=== PATIENT | male | born 1945 | race Caucasian/White ===

== ENCOUNTER 2024-12-26 03:28 | Inpatient (IN) | payer OTHER, MEDICAID ==
[~2024-12-26] VITALS: Ht 175.3 cm; Wt 72.5 kg
[~2024-12-26 03:28] MED LIST: ENAL1TAB42 PO; HYDR25TA5 PO; LANS30CA58 PO; METF750T54 PO; PEN400T PO; TAMS1CAP25 PO; TOPI50TA53 PO
--- NOTE | 2024-12-26 04:13 | ED.PDOC ---
History of Present Illness HPI Comments 79-year-old male who presents to the emergency department via EMS with confusion. Patient's states since yesterday morning patient has had difficulty with word finding, abnormal behaviors such as trying to flush a diaper down the toilet, not dressing like his normal self, putting shoes on the wrong feet. reports that for the past 2 years, worsens over the past 6 months patient has had personality change concerning for early signs of Alzheimer's. She states that patient is currently taking metformin and topiramate at home for weight loss. Otherwise no significant past medical history. The patient's son recently had viral illness, patient has had similar symptoms. The patient I have called 911 just prior to arrival after patient was looking for an object which was right in front of the him and appeared acutely more confused with a loss for words. Patient has not had any slurred speech, no focal weakness. Per EMS on their arrival they witnessed patient repeating himself multiple times, looking for his wallet, being told he did not needed and continued to look for it. They noticed patient's oxygen saturation dropped to 88% intermittently on room air. Otherwise patient's other vital signs are stable, normal blood sugar, negative stroke scale. The patient himself states he has no complaints other than chronic back pain, he reports he was working vigorously yesterday in his yard. The patient is alert and oriented x3. He knows the year the, where he was, current situation, the president. He is able to remember his 's phone number. Chief Complaint: Confusion Time Seen by MD: 04:13 Reviewed Notes: Medications, Allergies Allergies: Coded Allergies: Statins (Verified Allergy, Unknown, 12/26/24) Home Meds Reported Medications Levothyroxine Sodium (Levothyroxine Sodium) 112 Mcg Tab, 1 TAB PO DAILY 12/26/24 Information Source: Patient Mode of Arrival: EMS Severity: Moderate Timing: Hours Duration: Since onset Prehospital treatment: Facilitator Vital Signs Vital Signs Date Time Temp Pulse Resp B/P (MAP) Pulse Ox O2 Delivery O2 Flow Rate FiO2 12/26/24 06:30 74 16 113/61 (78) 99 12/26/24 05:26 Nasal Cannula* 2 28 12/26/24 05:07 98.3 98.3 Physical Exam General: Awake, alert and oriented. No acute distress. Skin: Skin in warm, dry and intact. Appropriate color for ethnicity. HEENT: The head is normocephalic and atraumatic. Conjunctivae are clear without exudates or hemorrhage. Sclera is non-icteric. EOM are intact. No signs of nystagmus. Eyelids are normal in appearance without swelling or lesions. Oral mucosa is pink and moist. Nasal cannula in place. Neck: The neck is supple with normal range of motion. No JVD. Cardiac: Heart rate and rhythm are normal. No murmurs, gallops, or rubs are auscultated. Respiratory: No signs of respiratory distress. Lung sounds are clear in all lobes bilaterally without rales, rhonchi, or wheezes. Abdominal: Abdomen is soft, non-tender without distention. Bowel sounds are present and normoactive in all four quadrants. Extremities: Upper and lower extremities are atraumatic in appearance without deformity or edema. Neurological: The patient is awake, alert and oriented to person, place, and time with normal speech. Speech is clear. There is no facial asymmetry. Normal coordination. Strength in upper and lower extremities intact. Psychiatric: Appropriate mood and affect. Good judgement and insight. Review of Systems: REVIEW OF SYSTEMS: No fever, no chills, or fatigue HEENT: No sore throat, no earache, no congestion, no neck pain. Cardiac: No chest pain. No palpitations. Lungs: No shortness of breath, no cough. GI: No nausea, no vomiting, no diarrhea, no constipation, no abdominal pain : No dysuria, frequency, or urgency. No hematuria. Musculoskeletal: No new joint pain , no joint swelling, no extremity edema. Skin: No rash, no itching. Neuro: No headache, no dizziness, no weakness Was a procedure done? Was a procedure done?: No EKG EKG : Pulse Rate (adult): 79 [place]: Normal Cardiac Rhythm: NSR Block: LBBB Hypertrophy: None ST: Normal Comments No STEMI Differential Dx Considerations may include: Differential diagnosis considered includes but not limited to stroke, head injury, seizure, metabolic disturbance, electrolyte imbalance, infection, substance intoxication, psychiatric cause, other systemic illness, other X-Ray, Labs, Meds, VS Vital Signs Date Time Temp Pulse Resp B/P (MAP) Pulse Ox O2 Delivery O2 Flow Rate FiO2 12/26/24 06:30 74 16 113/61 (78) 99 12/26/24 05:26 Nasal Cannula* 2 28 12/26/24 05:07 98.3 74 16 113/59 (77) 100 98.3 12/26/24 04:35 79 12/26/24 04:01 79 12/26/24 03:39 98.7 86 18 122/69 (86) 96 98.7 Lab Test 12/26/24 05:10 12/26/24 04:11 Range/Units Troponin I High Sensitivity 18 18 </=54 ng/L Thyroid Stimulating Hormone (TSH) 0.07 L 0.55-4.78 uIU/mL White Blood Count 25.0 H 4.4-10.8 10^3/uL Red Blood Count 4.27 L 4.5-5.90 10^6/uL Hemoglobin 12.6 L 13.5-17.5 g/dL Hematocrit 38.0 L 41.0-53.0 % Mean Corpuscular Volume 89.1 80.0-100.0 fL Mean Corpuscular Hemoglobin 29.6 28.0-32.0 pg Mean Corpuscular Hemoglobin Concent 33.2 32.0-36.0 g/dL Red Cell Distribution Width 12.8 11.8-14.3 % Platelet Count 281 140-450 10^3/uL Mean Platelet Volume 7.3 6.9-10.8 fL Neutrophils (%) (Auto) 37.0-80.0 % Lymphocytes (%) (Auto) 10.0-50.0 % Monocytes (%) (Auto) 0.0-12.0 % Basophils (%) (Auto) 0.0-2.0 % Neutrophils # (Auto) 1.6-8.6 10 ^3/uL Lymphocytes # (Auto) 0.4-5.4 10 ^3/uL Monocytes # (Auto) 0-1.3 10 ^3/uL Differential Total Cells Counted 100.0 100 Neutrophils % (Manual) 85 H 37.0-80.0 Band Neutrophils % (Manual) 3 Lymphocytes % (Manual) 5 L 10.0-50.0 Monocytes % (Manual) 6 0-12 Eosinophils % (Manual) 0 0-7 Basophils % (Manual) 0 0.0-2.0 Metamyelocytes % (manual) 0 Myelocytes % (Manual) 0 Promyelocytes % (Manual) 0 Blast Cells % (Manual) 0 Reactive Lymphocytes 1 Platelet Estimate Adequate Sodium Level 136 136-145 mmol/L Potassium Level 3.5 3.5-5.1 mmol/L Chloride Level 100 98-107 mmol/L Carbon Dioxide Level 27 20-31 mmol/L Anion Gap 9 5-15 Blood Urea Nitrogen 24 H 9-23 mg/dL Creatinine 1.28 0.700-1.30 mg/dL Glomerular Filtration Rate Calc 57 >90 mL/min BUN/Creatinine Ratio 18.8 10.0-20.0 Serum Glucose 144 H 74-106 mg/dL Hemoglobin A1c 5.6 <5.7 % A1C Lactic Acid Level 1.0 0.4-2.0 mmol/L Calcium Level 9.4 8.7-10.4 mg/dL Magnesium Level 1.9 1.6-2.6 mg/dL Total Bilirubin 0.6 0.2-1.0 mg/dL Aspartate Amino Transferase (AST) 11 L 13-40 U/L Alanine Aminotransferase (ALT) 12 7-40 U/L Alkaline Phosphatase 129 H 46-116 U/L Total Protein 7.0 5.7-8.2 g/dL Albumin 4.3 3.2-4.8 g/dL Free Thyroxine (T4) Calculated 1.35 0.89-1.76 ng/dL Free Triiodothyronine (T3) pg/mL 2.04 L 2.3-4.2 pg/mL Total Triiodothyronine (TT3) 0.70 0.60-1.81 ng/mL Plasma/Serum Blood Alcohol < 3.0 <10 mg/dL Current Medications Medications (Trade) Dose Ordered Sig/Sulema Route Start Time Stop Time Status Last Admin Ceftriaxone Sodium 50 ml @ 100 mls/hr ONCE ONCE IV 12/26/24 05:15 12/26/24 05:44 DC 12/26/24 05:40 Vancomycin HCl 200 ml @ 200 mls/hr ONCE ONCE IV 12/26/24 05:15 12/26/24 06:14 DC 12/26/24 06:15 Sodium Chloride 1,000 ml @ 1,000 mls/hr Q1H ONCE IV 12/26/24 06:15 12/26/24 07:14 DC 12/26/24 06:25 Time of 1ST Reevaluation: 04:43 Reevaluation 1ST: N/A Patient Education/Counseling: Need For Follow Up Family Education/Counseling: No Family Present Departure 1 Departure Time of Disposition: 05:05 Impression: Primary Impression: Confusion Additional Impression: Leukocytosis Disposition: 09 ADMITTED INPATIENT Condition: Stable Comments 79-year-old male with confusion and leukocytosis. Suspected infection, chest x-ray, CT head, urinalysis pending. Antibiotics initiated in the emergency department. Patient admitted to hospitalist service for further treatment, evaluation and monitoring. Extensive evaluation was performed in attempt to identify or rule out: (See differential diagnosis section) The following tests were ordered, and results were reviewed by me and discussed with patient: (See diagnostic results section) The following test were independently interpreted by me: EKG I reviewed and agreed with the following test results read by other providers: N/A I reviewed the following notes from the pt's past medical encounters: N/A Additional information was gathered from interviewing the following independent historians: EMS personnel, patient's Discussion of management or test interpretation with external physician/other qualified health doggy daycare activities director: N/A Decision regarding hospitalization or escalation of hospital level of care: Risk and benefits of admission for further treatment of patient's condition was considered. Due to patient's current clinical condition, high risk of decline and poor outcome if discharged and need for further inpatient management and monitoring, patient will be admitted to the hospital. Critical Care Note Critical Care Time?: No Stability Stability form required: No Heart Score Heart Score: Heart Score Response (Comments) Value History N/A 0 EKG N/A 0 Age N/A 0 Risk Factors N/A 0 Troponin N/A 0 Total 0 I personally scribed for ANI SANTACRUZ MD ([email or web address]) on 12/26/24 at 04:13. Electronically submitted by Cam Jeff ([email or web address]). I personally scribed for ANI SANTACRUZ MD ([email or web address]) on 12/26/24 at 04:35. Electronically submitted by Cam Jeff ([email or web address]). ANI SANTACRUZ MD Dec 26, 2024 04:13
[2024-12-26 04:43] LABS: Hemoglobin 12.6 g/dL (13.5-17.5); Mean Corpuscular Hemoglobin 29.6 pg (28.0-32.0); Mean Corpuscular Hgb Conc. 33.2 g/dL (32.0-36.0); Mean Corpuscular Volume 89.1 fL (80.0-100.0); Platelet Count (auto) 281 10^3/uL (140-450); Red Blood Cells 4.27 10^6/uL (4.5-5.90); Red Cell Distribution Width 12.8 % (11.8-14.3)
[2024-12-26 04:46] LABS: Basophils % (manual) 0 (0.0-2.0); Blast Cells 0; Eosinophils % (manual) 0 (0-7); Metamyelocytes % 0; Myelocytes % 0; Promyelocytes % 0
[2024-12-26 04:50] LABS: Alanine Aminotransferase 12 U/L (7-40); Albumin 4.3 g/dL (3.2-4.8); Anion Gap 9 (5-15); BUN/Creatinine Ratio 18.8 (10.0-20.0); Calcium 9.4 mg/dL (8.7-10.4); Carbon Dioxide 27 mmol/L (20-31); Chloride 100 mmol/L (98-107); Magnesium 1.9 mg/dL (1.6-2.6)
[2024-12-26 04:51] LABS: Bilirubin, Total 0.6 mg/dL (0.2-1.0)
[2024-12-26 04:56] LABS: Alkaline Phosphatase 129 U/L (46-116); Aspartate Aminotransferase 11 U/L (13-40); Blood Urea Nitrogen 24 mg/dL (9-23); Glucose 144 mg/dL (74-106); Potassium 3.5 mmol/L (3.5-5.1); Sodium 136 mmol/L (136-145)
--- NOTE | 2024-12-26 05:30 | ECG ---
[facility] Test Date: 2024-12-26 Test Time: 04:01:41 Pat Name: MARIA T MONTERO Department: ED Room: 0219T Gender: M Airplane Engineer: DARIUSZ : 1945 Requested By: ANI SANTACRUZ Order Number: [id number] Reading MD: Jeremiah Johnson Measurements Intervals [place] Rate: 79 P: 50 KS: 173 QRS: -71 QRSD: 141 T: -66 QT: 355 QTc: 407 Interpretive Statements Sinus rhythm Left bundle branch block Electronically Signed On 12-27-2024 21:05:43 PDT by Jeremiah Johnson Please click the below link to view image of tracing.
[2024-12-26 05:33] LABS: Blood Alcohol < 3.0 mg/dL (<10)
[2024-12-26] MEDS: cefTRIAXone 1GM/50ML D5W 50 ML IV ONE (05:40)
[2024-12-26] MEDS: VANCOMYCIN 1GM/200ML PM 200 ML IV ONE (06:15)
--- NOTE | 2024-12-26 06:17 | DVH ---
CHEST RADIOGRAPH Indication: AMS Technique: Single frontal view of the chest was obtained Comparison: None FINDINGS: Lines and Tubes: None Lungs: No focal consolidation. Pleura: No effusion. No pneumothorax. Cardiomediastinal contours: Unremarkable Bones: No acute osseous abnormality. IMPRESSION: 1. No acute cardiopulmonary disease.
--- NOTE | 2024-12-26 06:23 | DVH ---
EXAM: CT HEAD WITHOUT CONTRAST INDICATION: Altered mental status TECHNIQUE: CT of the head without intravenous contrast. Coronal and sagittal reformatted images are s ubmitted. Radiation Dose : 1. Head: CT Dose: CTDI volume is 53.9 mGy. Dose-length product is 1081.5 mGy*cm The dose indicators for CT are the volume Computed Tomography (CT) Dose Index (CTDIvol) and the Dose Length Product (DLP), and are measured in units of mGy and mGy-cm, respectively. These indicators are not patient dose, but values generated from the CT scanner acquisition factors. The report includes radiation exposure data for exposures received during this examination. All CT scans at this medical facility are performed using dose modulation techniques as appropriate to a performed exam including the following: Automated exposure control was utilized; adjustment of the MA and/or KV according to patient size; and use of iterative reconstruction technique. COMPARISON: None FINDINGS: There is no evidence of acute intracranial hemorrhage, extra-axial collection, mass effect, midline s hift, herniation or hydrocephalus. Generalized volume loss resulting in prominence of the extra-axial spaces The ventricles, sulci and cisterns are age appropriate. The alvarez-white differentiation is intact. The visualized paranasal sinuses and mastoid air cells are clear. No depressed calvarial fracture. The surrounding soft tissues are unremarkable. IMPRESSION: 1. No evidence of acute intracranial abnormality.
[2024-12-26] MEDS: SODIUM CHLORIDE 0.9% 1,000 ML IV ONE (06:25)
--- NOTE | 2024-12-26 06:52 | DVHHPRES ---
History of Present Illness Resident Creating Document: CORETTA GARCIA RESIDENT History of Present Illness 79-year-old male with past medical history( as provided by the patient) of chronic pain presented with complaints of fatigue that started last night after he did some weightlifting work. Denied any complaints of chest pain, shortness of breath, burning micturition, cough, nausea, vomiting, abdominal pain, dizziness, headache. As per ER physician note, presented to the emergency department via EMS with confusion. Patient's states since yesterday morning patient has had difficulty with word finding, abnormal behaviors such as trying to flush a diaper down the toilet, not dressing like his normal self, putting shoes on the wrong feet. reports that for the past 2 years, worsens over the past 6 months patient has had personality change concerning for early signs of Alzheimer's. She states that patient is currently taking metformin and topirama te at home for weight loss. Otherwise no significant past medical history. The patient's son recently had viral illness, patient has had similar symptoms. The patient I have called 911 just prior to arrival after patient was looking for an object which was right in front of the him and appeared acutely more confused with a loss for words. Patient has not had any slurred speech, no focal weakness. Per EMS on their arrival they witnessed patient repeating himself multiple times, looking for his wallet, being told he did not needed and continued to look for it. They noticed patient's oxygen saturation dropped to 88% intermittently on room air. Otherwise patient's other vital signs were stable, normal blood sugar, negative stroke scale. Past medical history Chronic pain Past surgical history No recent surgery Social history Denied smoking, drinks occasional alcohol, denied marijuana or any other drug intake Allergic history Statins Medication history Levothyroxine Hydrochlorothiazide Enalapril Tamsulosin Pentoxifylline Vilazodone Lamotrigine Metformin Topiramate Amlodipine Tizanidine Review of Systems Review of Systems As mentioned in the HPI Allergies: Coded Allergies: Statins (Verified Allergy, Unknown, 12/26/24) Exam Vital Signs Vital Signs Date Time Temp Pulse Resp B/P (MAP) Pulse Ox O2 Delivery O2 Flow Rate FiO2 12/26/24 05:26 Nasal Cannula* 2 28 12/26/24 05:07 98.3 74 16 113/59 (77) 100 98.3 Exam Examination General Appearance: Dry mouth, Alert, Oriented X3, Cooperative, No acute distress HEENT: EOMI Respiratory: Clear to auscultation, Normal air movement Cardiovascular: Regular rate, Normal S1, Normal S2 Abdominal: Normal bowel sounds Extremities: No cyanosis, No edema, Normal pulses, No tenderness/swelling Skin: No rashes, No breakdown Neuro: Normal gait, Normal speech, Strength at 5/5 X4 ext, Normal tone, Sensation intact, Cranial nerves 3-12 NL, Reflexes 2+ Psych/Mental Status: Mental status NL, Mood NL Point of care ultrasound on at bedside IVC collapse, size less than 1.3 cm Labs/Xrays Labs Test 12/26/24 05:10 12/26/24 04:11 Range/Units Troponin I High Sensitivity 18 </=54 ng/L White Blood Count 25.0 H 4.4-10.8 10^3/uL Red Blood Count 4.27 L 4.5-5.90 10^6/uL Hemoglobin 12.6 L 13.5-17.5 g/dL Hematocrit 38.0 L 41.0-53.0 % Mean Corpuscular Volume 89.1 80.0-100.0 fL Mean Corpuscular Hemoglobin 29.6 28.0-32.0 pg Mean Corpuscular Hemoglobin Concent 33.2 32.0-36.0 g/dL Red Cell Distribution Width 12.8 11.8-14.3 % Platelet Count 281 140-450 10^3/uL Mean Platelet Volume 7.3 6.9-10.8 fL Neutrophils (%) (Auto) 37.0-80.0 % Lymphocytes (%) (Auto) 10.0-50.0 % Monocytes (%) (Auto) 0.0-12.0 % Basophils (%) (Auto) 0.0-2.0 % Neutrophils # (Auto) 1.6-8.6 10 ^3/uL Lymphocytes # (Auto) 0.4-5.4 10 ^3/uL Monocytes # (Auto) 0-1.3 10 ^3/uL Sodium Level 136 136-145 mmol/L Potassium Level 3.5 3.5-5.1 mmol/L Chloride Level 100 98-107 mmol/L Carbon Dioxide Level 27 20-31 mmol/L Anion Gap 9 5-15 Blood Urea Nitrogen 24 H 9-23 mg/dL Creatinine 1.28 0.700-1.30 mg/dL Glomerular Filtration Rate Calc 57 >90 mL/min BUN/Creatinine Ratio 18.8 10.0-20.0 Serum Glucose 144 H 74-106 mg/dL Lactic Acid Level 1.0 0.4-2.0 mmol/L Calcium Level 9.4 8.7-10.4 mg/dL Magnesium Level 1.9 1.6-2.6 mg/dL Total Bilirubin 0.6 0.2-1.0 mg/dL Aspartate Amino Transferase (AST) 11 L 13-40 U/L Alanine Aminotransferase (ALT) 12 7-40 U/L Alkaline Phosphatase 129 H 46-116 U/L Total Protein 7.0 5.7-8.2 g/dL Albumin 4.3 3.2-4.8 g/dL Plasma/Serum Blood Alcohol < 3.0 <10 mg/dL Assessment/Plan Assessment/Plan Assessment and plan # metabolic encephalopathy likely due to possible sepsis -head CT IV fluids, IV antibiotics Workup for sepsis TSH, B12, folate, electrolytes -medication reconciliation #?Questionable sepsis, source not identified yet -IV fluids IV antibiotics Blood culture Lactic acid Urine culture Urine routine #Personality change, ?Dementia -consider outpatient neurology evaluation #hypothyroidism -continue home Meds ordered TSH Case discussion with Dr Mott Plan discussed with: Patient, Other Date of Service: Dec 26, 2024 Billing Provider: CESIA MOTT MD Common Visit Codes: [id number] INP/OBS CARE (HIGH) CORETTA GARCIA RESIDENT Dec 26, 2024 06:52 CESIA MOTT MD Dec 26, 2024 10:43
[2024-12-26 06:59] LABS: Band Neutrophils % (manual) 3; Lymphocytes % (manual) 5 (10.0-50.0); Monocytes % (manual) 6 (0-12); Platelet Estimate Adequate; Reactive Lymphocytes 1
[2024-12-26] MEDS ORDERED: VANCOMYCIN PER PHARMACY 0 MG IV SCH (07:45)
[2024-12-26 08:26] VITALS: PULSE 74; RESP 12; O2SAT 98
[2024-12-26 09:14] LABS: COVID19 ANTIGEN SOFIA FIA NEGATIVE (NEGATIVE); Rapid Influenza A Negative (Negative); Rapid Influenza B Negative (Negative)
[2024-12-26] MEDS: SODIUM CHLORIDE 0.9% 500 ML IV ONE (10:28)
--- NOTE | 2024-12-26 11:11 | DVHPNRES ---
Progress Note Date Seen: Dec 26, 2024 Resident Creating Document: ALFREDITO RAO RESIDENT Has the PT tested + for MRSA If YES, has PT been informed?: No Medical Necessity Reason Pt with a Central, PICC or Fol: No Medical Necessity Reason History of Presenting illness 79-year-old male with past medical history( as provided by the patient) of chronic pain presented with complaints of fatigue that started last night after he did some weightlifting work. Denied any complaints of chest pain, shortness of breath, burning micturition, cough, nausea, vomiting, abdominal pain, dizziness, headache. As per ER physician note, presented to the emergency department via EMS with confusion. Patient's states since yesterday morning patient has had difficulty with word finding, abnormal behaviors such as trying to flush a diaper down the toilet, not dressing like his normal self, putting shoes on the wrong feet. reports that for the past 2 years, worsens over the past 6 months patient has had personality change concerning for early signs of Alzheimer's. She states that patient is currently taking metformin and topiramate at home for weight loss. Otherwise no significant past medical history. The patient's son recently had viral illness, patient has had similar symptoms. The patient I have called 911 just prior to arrival after patient was looking for an object which was right in front of the him and appeared acutely more confused with a loss for words. Patient has not had any slurred speech, no focal weakness. Per EMS on their arrival they witnessed patient repeating himself multiple times, looking for his wallet, being told he did not needed and continued to look for it. They noticed patient's oxygen saturation dropped to 88% intermittently on room air. Otherwise patient's other vital signs were stable, normal blood sugar, negative stroke scale. Past medical history: Chronic pain Past surgical history:No recent surgery Social history:Denied smoking, drinks occasional alcohol, denied marijuana or any other drug intake Allergic history:Statins PN 12/26/2022 Patient seen and examined today. He mentioned that of recent, he has been very tired even after a good night sleep. 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 Patient denies any fever chills, nausea or vomiting. Per ED note, Patient's reported that She brought the patient to the ED via EMS with confusion. Patient's stated that a day prior to presenting to the ED, patient has had difficulty with word finding, displayed abnormal behaviors such as trying to flush a diaper down the toilet, not dressing like his normal self, putting shoes on the wrong feet. also reported that for the past 2 years, patient has had personality change concerning for early signs of Alzheimer's. Per , patient is currently taking metformin and topiramate.The patient's son recently had viral illness, patient has had similar symptoms. Thus, 911 was called. by the time EMS arrived, patient seemed more confused than before. In the ED, UA is positive for UTI, pending urine and blood culture. Leukocytosis. Chest x-ray: No acute cardiopulmonary disease. CT head showed No evidence of acute intracranial abnormality. Medication history: Levothyroxine, Hydrochlorothiazide,Enalapril,Tamsulosin, Pentoxifylline,Vilazodone, Lamotrigine, Metformin,Topiramate, Amlodipine,Tizanidine Subjective Review of Systems Constitutional: Denies fever no chills, extremely fatigued HEENT: Denies headache, ear pain, ear discharges, conjunctivitis, nasal discharge throat pain Cardiovascular: Denies chest pain, palpitation, orthopnea, PND, or pedal edema Respiratory: Denies shortness of breath, cough cough, sputum production, hemoptysis, GI: Denies abdominal pain, nausea, vomiting, diarrhea, hematemesis, hematochezia, : Denies frequency, urgency, hematuria, Endocrine: Denies unintentional weight gain or weight loss, feeling of hot flashes, [place]: Denies easy bruising, bleeding disorders, epistaxis Musculoskeletal: Denies joint pains, muscle aches Psych: No evidence of depression, claudine, suicidal ideation Objective vital signs Vital Sign Date Time Temp Pulse Resp B/P (MAP) Pulse Ox O2 Delivery O2 Flow Rate FiO2 12/26/24 09:01 97.5 74 20 102/66 (78) 100 97.5 12/26/24 08:26 Nasal Cannula* 2 28 Total Intake and Output 12/25/24 12/25/24 12/26/24 15:00 23:00 07:00 Intake Total 50 ml Balance 50 ml medications Current Medications Medications Dose Ordered Sig/Sulema Route Start Time Stop Time Status Last Admin Dose Admin Vancomycin HCl 0 ml @ 0 mls/hr UD IV 12/26/24 07:45 UNV Piperacillin Sod/ Tazobactam Sod 100 ml @ 25 mls/hr Q6HR IV 12/26/24 12:00 Examination General Appearance: Alert, Oriented X3, Cooperative, No acute distress; weak, HEENT: Atraumatic, PERRLA, EOMI, Mucous membrane moist/pink Respiratory: Clear to auscultation, Normal air movement Cardiovascular: Regular rate, Normal S1, Normal S2, No murmurs, no chest wall tenderness Abdominal: NO distention, no tenderness, bowel sounds present, no scars noted Extremities: No clubbing, No cyanosis, No edema, Normal pulses, No tenderness/swelling Skin: No rashes, No breakdown, No significant lesion Neuro: Normal gait, Normal speech, Strength at 5/5 X4 ext, Normal tone, Sensation intact, Cranial nerves 3-12 NL, Reflexes 2+ Psych/Mental Status: Mental status NL, Mood NL laboratory and microbiology Laboratory Tests 12/26/24 04:11 Test 12/26/24 04:11 Range/Units Serum Glucose 144 H 74-106 mg/dL Problem List/Assessment/Plan Problem List/Assessment/Plan Assessment metabolic encephalopathy likely due to possible sepsis --> head CT: No evidence of acute intracranial abnormality --> IV fluids, IV antibiotics Sepsis due to UTI --> Leukocytosis --> BP: 113/59 --> IV fluids --> IV antibiotics: Zosyn --> Blood culture:Pending --> Lactic acid: 1.0 --> Urine culture: Pending UTI -->IV fluids --> IV antibiotics: Zosyn --> Blood culture:Pending --> Lactic acid: 1.0 Urine culture: Pending Personality change, ?Dementia ---> consider outpatient neurology evaluation hypothyroidism --> continue levothyroxine Dehydration --> Fluids Goal of care discussed for 18 minutes: Full code Case and plan discussed + Dr. Sevilla Plan discussed with: Patient My Orders My Orders Orders - ALFREDITO RAO RESIDENT Procedure Category Date Status Time Free T3 LAB 12/26/24 Transmitted 11:07 T3 Total LAB 12/26/24 Transmitted 11:07 Free T4 (Free LAB 12/26/24 Transmitted Thyroxine) 11:07 Basic Metabolic Panel LAB 12/27/24 Verified 04:00 Complete Blood Count LAB 12/27/24 Verified 04:00 Date of Service: Dec 26, 2024 Billing Provider: ERNST SEVILLA MD Common Visit Codes: [id number] INP/OBS CARE(HIGH) ALFREDITO RAO RESIDENT Dec 26, 2024 11:11 ERNST SEVILLA MD Dec 27, 2024 22:22
[2024-12-26] MEDS: PIPERACILLIN-TAZOB 3.375GM 100 ML IV SCH (12:10)
[2024-12-26 12:26] LABS: Free T4 (Free Thyroxine) 1.35 ng/dL (0.89-1.76)
[2024-12-26 12:27] LABS: Free T3 2.04 pg/mL (2.3-4.2); T3 Total 0.7 ng/mL (0.60-1.81)
[2024-12-26 15:09] LABS: Urine Bacteria FEW /hpf (None Seen); Urine Blood 2+ /uL (Negative); Urine Clarity Turbid (Clear); Urine Color Light-Orange (Yellow); Urine Mucus FEW (None Seen); Urine Protein, UAD 1+ (Negative); Urine Specific Gravity 1.018 (1.001-1.035); Urine Squamous Epithelial Cell FEW /hpf (<5); Urine Urobilinogen Normal (Negative); Urine WBC 84 /HPF (0-3); Urine pH 5.5 (5.0-9.0)
[2024-12-26 15:20] LABS: Opiate Scree,Urine Neg (NEGATIVE)
[2024-12-26 15:23] LABS: Amphetamine Screen, Urine Neg (NEGATIVE); Barbiturate Scree,Urine Neg (NEGATIVE); Benzodiazephine Screen, Urine Neg (NEGATIVE); Cannabinoid Screen, Urine Neg (NEGATIVE); Cocaine Screen, Urine Neg (NEGATIVE); Phencyclidine Screen, Urine Neg (NEGATIVE)
[2024-12-26] MEDS ORDERED: LEVO112T4 PO (16:54)
[2024-12-26 17:00] VITALS: BP 136/73; PULSE 78; RESP 17; TEMP 97.8; O2SAT 96
[2024-12-26 17:55] VITALS: PULSE 78; RESP 17; O2SAT 96
[2024-12-26 20:00] VITALS: PULSE 95
[2024-12-26 21:00] VITALS: BP 129/70; PULSE 87; RESP 18; TEMP 101.8; O2SAT 97
[2024-12-27] VITALS (8 sets, daily range): BP systolic 116–142; BP diastolic 62–76; PULSE 64–79; RESP 17–19; TEMP 97.5–99; O2SAT 94–98
[2024-12-27] MEDS: PANTOPRAZOLE 40 MG/10 ML VIAL INJ IV ONE (00:31)
[2024-12-27] MEDS: LEVOTHYROXINE SODIUM 112 MCG TAB PO SCH (06:24)
[2024-12-27 07:20] LABS: Calcium 9.2 mg/dL (8.7-10.4); Chloride 104 mmol/L (98-107); Sodium 139 mmol/L (136-145)
[2024-12-27 07:21] LABS: Anion Gap 9 (5-15); Basophils # (auto) 0 10 ^3/uL (0-0.2); Basophils % (auto) 0.2 % (0.0-2.0); Carbon Dioxide 26 mmol/L (20-31); Eosinophils # (auto) 0.1 10 ^3/uL (0-0.8); Eosinophils % (auto) 0.7 % (0.0-7.0); Hematocrit 34.9 % (41.0-53.0); Hemoglobin 11.5 g/dL (13.5-17.5); Lymphocytes # (auto) 1.3 10 ^3/uL (0.4-5.4); Lymphocytes % (auto) 9.3 % (10.0-50.0); Mean Corpuscular Hemoglobin 29.6 pg (28.0-32.0); Mean Corpuscular Volume 89.9 fL (80.0-100.0); Monocytes # (auto) 1.8 10 ^3/uL (0-1.3); Monocytes % (auto) 13.1 % (0.0-12.0); Neutrophils # (auto) 10.5 10 ^3/uL (1.6-8.6); Neutrophils % (auto) 76.7 % (37.0-80.0); Nucleated Red Blood Cells % 0.1 %; Platelet Count (auto) 235 10^3/uL (140-450); Red Blood Cells 3.89 10^6/uL (4.5-5.90); Red Cell Distribution Width 12.7 % (11.8-14.3); White Blood Cell 13.6 10^3/uL (4.4-10.8)
[2024-12-27 07:26] LABS: BUN/Creatinine Ratio 15.7 (10.0-20.0); Blood Urea Nitrogen 16 mg/dL (9-23); Glucose 98 mg/dL (74-106)
[2024-12-27 07:30] LABS: Potassium 3.3 mmol/L (3.5-5.1)
[2024-12-27] MEDS: PANTOPRAZOLE 40 MG/10 ML VIAL INJ IV SCH (10:47)
[2024-12-27] MEDS: SODIUM CHL 0.9% 50 ML IV SCH (11:00)
[2024-12-27] MEDS: POTASSIUM CHL 20MEQ/50ML 50 ML IV SCH (11:33)
--- NOTE | 2024-12-27 17:25 | DVHPNRES ---
Progress Note Date Seen: Dec 27, 2024 Resident Creating Document: ALFREDITO RAO RESIDENT Has the PT tested + for MRSA If YES, has PT been informed?: No Medical Necessity Reason Pt with a Central, PICC or Fol: No Medical Necessity Reason History of Presenting illness 79-year-old male with past medical history( as provided by the patient) of chronic pain presented with complaints of fatigue that started last night after he did some weightlifting work. Denied any complaints of chest pain, shortness of breath, burning micturition, cough, nausea, vomiting, abdominal pain, dizziness, headache. As per ER physician note, presented to the emergency department via EMS with confusion. Patient's states since yesterday morning patient has had difficulty with word finding, abnormal behaviors such as trying to flush a diaper down the toilet, not dressing like his normal self, putting shoes on the wrong feet. reports that for the past 2 years, worsens over the past 6 months patient has had personality change concerning for early signs of Alzheimer's. She states that patient is currently taking metformin and topiramate at home for weight loss. Otherwise no significant past medical history. The patient's son recently had viral illness, patient has had similar symptoms. The patient I have called 911 just prior to arrival after patient was looking for an object which was right in front of the him and appeared acutely more confused with a loss for words. Patient has not had any slurred speech, no focal weakness. Per EMS on their arrival they witnessed patient repeating himself multiple times, looking for his wallet, being told he did not needed and continued to look for it. They noticed patient's oxygen saturation dropped to 88% intermittently on room air. Otherwise patient's other vital signs were stable, normal blood sugar, negative stroke scale. Past medical history: Chronic pain Past surgical history:No recent surgery Social history:Denied smoking, drinks occasional alcohol, denied marijuana or any other drug intake Allergic history:Statins Medication history: Levothyroxine, Hydrochlorothiazide,Enalapril,Tamsulosin, Pentoxifylline,Vilazodone, Lamotrigine, Metformin,Topiramate, Amlodipine,Tizanidine PN 12/26/2022 Patient seen and examined today. He mentioned that of recent, he has been very tired even after a good night sleep. 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 Patient denies any fever chills, nausea or vomiting. Per ED note, Patient's reported that She brought the patient to the ED via EMS with confusion. Patient's stated that a day prior to presenting to the ED, patient has had difficulty with word finding, displayed abnormal behaviors such as trying to flush a diaper down the toilet, not dressing like his normal self, putting shoes on the wrong feet. also reported that for the past 2 years, patient has had personality change concerning for early signs of Alzheimer's. Per , patient is currently taking metformin and topiramate.The patient's son recently had viral illness, patient has had similar symptoms. Thus, 911 was called. by the time EMS arrived, patient seemed more confused than before. In the ED, UA is positive for UTI, pending urine and blood culture. Leukocytosis. Chest x-ray: No acute cardiopulmonary disease. CT head showed No evidence of acute intracranial abnormality. PN: 12/27/2024 Patient seen and examined today. He was sleeping at the time of my visit. Night nurse reported that patient was more altered at night. He was positive for UTI currently on antibiotic and pending urine culture. So far no microorganism noted as of yet. Will continue to monitor patient again overnight while pending the the urine culture. I revisited patient this evening. Patient is awake alert and oriented. No evidence of confusion. Patient told me today that he had prostatectomy a month ago. Will confirm with his . Subjective Review of Systems Constitutional: Denies fever no chills no feeling of malaise HEENT: Denies headache, ear pain, ear discharges, conjunctivitis, nasal discharge throat pain Cardiovascular: Denies chest pain, palpitation, orthopnea, PND, or pedal edema Respiratory: Denies shortness of breath, cough cough, sputum production, hemoptysis, GI: Denies abdominal pain, nausea, vomiting, diarrhea, hematemesis, hematochezia, : Denies frequency, urgency, hematuria, Endocrine: Denies unintentional weight gain or weight loss, feeling of hot flashes, Christiano: Denies easy bruising, bleeding disorders, epistaxis Musculoskeletal: Denies joint pains, muscle aches Psych: No evidence of depression, claudine, suicidal ideation Objective vital signs Vital Sign Date Time Temp Pulse Resp B/P (MAP) Pulse Ox O2 Delivery O2 Flow Rate FiO2 12/27/24 16:41 99.0 79 18 142/74 (96) 96 99.0 12/27/24 08:00 Room Air* 0 21 Total Intake and Output 12/26/24 12/26/24 12/27/24 15:00 23:00 07:00 Intake Total 1500 ml 300 ml 500 ml Balance 1500 ml 300 ml 500 ml medications Current Medications Medications Dose Ordered Sig/Sulema Route Start Time Stop Time Status Last Admin Dose Admin Piperacillin Sod/ Tazobactam Sod 100 ml @ 25 mls/hr Q6HR IV 12/26/24 12:00 12/27/24 15:45 25 MLS/HR Levothyroxine Sodium 112 mcg QAM PO 12/27/24 07:00 12/27/24 06:24 112 MCG Pantoprazole Sodium 40 mg DAILY IV 12/27/24 10:00 12/27/24 10:47 40 MG Examination General Appearance: Alert, Oriented X3, Cooperative, No acute distress HEENT: Atraumatic, PERRLA, EOMI, Mucous membrane moist/pink Respiratory: Clear to auscultation, Normal air movement Cardiovascular: Regular rate, Normal S1, Normal S2, No murmurs, no chest wall tenderness Abdominal: NO distention, no tenderness, bowel sounds present, no scars noted Extremities: No clubbing, No cyanosis, No edema, Normal pulses, No tenderness/swelling Skin: No rashes, No breakdown, No significant lesion Neuro: Normal gait, Normal speech, Strength at 5/5 X4 ext, Normal tone, Sensation intact, Cranial nerves 3-12 NL, Reflexes 2+ Psych/Mental Status: Mental status NL, Mood NL laboratory and microbiology Laboratory Tests 12/27/24 06:13 Test 12/27/24 06:13 Range/Units Serum Glucose 98 74-106 mg/dL Microbiology Date/Time Source Procedure Growth Status 12/26/24 14:53 Voided Urine Urine Culture - Preliminary Resulted 12/26/24 08:19 Nose MRSA Screen - Final Complete 12/26/24 07:12 Blood Blood Culture - Preliminary NO GROWTH AFTER 24 HOURS OF INCUBATION. Resulted Problem List/Assessment/Plan Problem List/Assessment/Plan Assessment metabolic encephalopathy likely due to possible sepsis --> head CT: No evidence of acute intracranial abnormality --> IV fluids, IV antibiotics Sepsis due to UTI --> Leukocytosis --> BP: 113/59 --> IV fluids --> IV antibiotics: Zosyn --> Blood culture:Pending --> Lactic acid: 1.0 --> Urine culture: Pending Delirium --> if patient seem confused again then let's consider haloperidol lowest does UTI -->IV fluids --> IV antibiotics: Zosyn --> Blood culture:Pending --> Lactic acid: 1.0 Urine culture: Pending Personality change, ?Dementia ---> consider outpatient neurology evaluation hypothyroidism --> continue levothyroxine Dehydration --> Fluids Goal of care discussed for 18 minutes: Full code Case and plan discussed + Dr. Sevilla Plan discussed with: Patient Date of Service: Dec 27, 2024 Billing Provider: ERNST SEVILLA MD Common Visit Codes: [id number] INP/OBS CARE(HIGH) ALFREDITO RAO RESIDENT Dec 27, 2024 17:25 ERNST SEVILLA MD Dec 27, 2024 22:36
[2024-12-28] VITALS (7 sets, daily range): BP systolic 107–144; BP diastolic 52–79; PULSE 53–72; RESP 18–20; TEMP 98.3–98.7; O2SAT 97–100
[2024-12-28 07:44] LABS: Anion Gap 10 (5-15); Calcium 9.3 mg/dL (8.7-10.4); Carbon Dioxide 25 mmol/L (20-31); Potassium 3.6 mmol/L (3.5-5.1); Sodium 142 mmol/L (136-145)
[2024-12-28 07:46] LABS: Basophils # (auto) 0 10 ^3/uL (0-0.2); Basophils % (auto) 0.3 % (0.0-2.0); Eosinophils # (auto) 0.2 10 ^3/uL (0-0.8); Eosinophils % (auto) 2.9 % (0.0-7.0); Hemoglobin 11.5 g/dL (13.5-17.5); Lymphocytes # (auto) 1.4 10 ^3/uL (0.4-5.4); Lymphocytes % (auto) 15.9 % (10.0-50.0); Mean Corpuscular Hemoglobin 31.1 pg (28.0-32.0); Mean Corpuscular Hgb Conc. 34.8 g/dL (32.0-36.0); Mean Corpuscular Volume 89.4 fL (80.0-100.0); Monocytes # (auto) 1.3 10 ^3/uL (0-1.3); Monocytes % (auto) 14.9 % (0.0-12.0); Neutrophils # (auto) 5.7 10 ^3/uL (1.6-8.6); Platelet Count (auto) 251 10^3/uL (140-450); Red Blood Cells 3.69 10^6/uL (4.5-5.90); Red Cell Distribution Width 12.7 % (11.8-14.3); White Blood Cell 8.6 10^3/uL (4.4-10.8)
[2024-12-28 07:50] LABS: BUN/Creatinine Ratio 18.4 (10.0-20.0); Blood Urea Nitrogen 16 mg/dL (9-23); Glucose 98 mg/dL (74-106)
[2024-12-28 07:57] LABS: Chloride 107 mmol/L (98-107)
--- NOTE | 2024-12-28 11:42 | DVHDSRES ---
Discharge Summary Date of Admission Resident Creating Document: ALFREDITO RAO RESIDENT Dec 26, 2024 at 06:45 Date of Discharge: Dec 28, 2024 Admitting Diagnosis Altered Level of consciousness Labs/Diagnostic Data: PATIENT: MARIA T MONTERO ACCT: [id number] UNIT: [id number] : 1945 LOC: ER ROOM / BED: / AGE / SEX: 79 / M ADM STATUS: REG ER SERVICE 0357 ORDERING PHYSICIAN: ANI SANTACRUZ MD PROCEDURE(s): HWOCT - HEAD WITHOUT CONTRAST REASON: Altered mental status ORDER NUMBER(s): [id number], ACCESSION NUMBER(s): [id number] EXAM: CT HEAD WITHOUT CONTRAST INDICATION: Altered mental status TECHNIQUE: CT of the head without intravenous contrast. Coronal and sagittal reformatted images are submitted. Radiation Dose : 1. Head: CT Dose: CTDI volume is 53.9 mGy. Dose-length product is 1081.5 mGy*cm The dose indicators for CT are the volume Computed Tomography (CT) Dose Index (CTDIvol) and the Dose Length Product (DLP), and are measured in units of mGy and mGy-cm, respectively. These indicators are not patient dose, but values generated from the CT scanner acquisition factors. The report includes radiation exposure data for exposures received during this examination. All CT scans at this medical facility are performed using dose modulation techniques as appropriate to a performed exam including the following: Automated exposure control was utilized; adjustment of the MA and/or KV according to patient size; and use of iterative reconstruction technique. COMPARISON: None FINDINGS: There is no evidence of acute intracranial hemorrhage, extra-axial collection, mass effect, midline shift, herniation or hydrocephalus. Generalized volume loss resulting in prominence of the extra-axial spaces The ventricles, sulci and cisterns are age appropriate. The alvarez-white differentiation is intact. The visualized paranasal sinuses and mastoid air cells are clear. No depressed calvarial fracture. The surrounding soft tissues are unremarkable. IMPRESSION: 1. No evidence of acute intracranial abnormality. ATED BY: FCO MORA MD DICTATED DATE/TIME: 12/26/24620 PATIENT: MARIA T MONTERO ACCT: [id number] UNIT: [id number] : 1945 LOC: ER ROOM / BED: / AGE / SEX: 79 / M ADM STATUS: REG ER SERVICE 0357 ORDERING PHYSICIAN: ANI SANTACRUZ MD PROCEDURE(s): CXR1 - CHEST XRAY 1 VIEW REASON: AMS ORDER NUMBER(s): [id number], ACCESSION NUMBER(s): [id number] CHEST RADIOGRAPH Indication: AMS Technique: Single frontal view of the chest was obtained Comparison: None FINDINGS: Lines and Tubes: None Lungs: No focal consolidation. Pleura: No effusion. No pneumothorax. Cardiomediastinal contours: Unremarkable Bones: No acute osseous abnormality. IMPRESSION: 1. No acute cardiopulmonary disease. ATED BY: FCO MORA MD DICTATED DATE/TIME: 12/26/2415 Laboratory Results Test 12/28/24 06:19 12/27/24 06:13 12/26/24 14:53 12/26/24 08:19 White Blood Count 8.6 10^3/uL (4.4-10.8) Red Blood Count 3.69 10^6/uL (4.5-5.90) Hemoglobin 11.5 g/dL (13.5-17.5) Hematocrit 33.0 % (41.0-53.0) Mean Corpuscular Volume 89.4 fL (80.0-100.0) Mean Corpuscular Hemoglobin 31.1 pg (28.0-32.0) Mean Corpuscular Hemoglobin Concent 34.8 g/dL (32.0-36.0) Red Cell Distribution Width 12.7 % (11.8-14.3) Platelet Count 251 10^3/uL (140-450) Mean Platelet Volume 7.3 fL (6.9-10.8) Neutrophils (%) (Auto) 66.0 % (37.0-80.0) Lymphocytes (%) (Auto) 15.9 % (10.0-50.0) Monocytes (%) (Auto) 14.9 % (0.0-12.0) Eosinophils (%) (Auto) 2.9 % (0.0-7.0) Basophils (%) (Auto) 0.3 % (0.0-2.0) Neutrophils # (Auto) 5.7 10 ^3/uL (1.6-8.6) Lymphocytes # (Auto) 1.4 10 ^3/uL (0.4-5.4) Monocytes # (Auto) 1.3 10 ^3/uL (0-1.3) Eosinophils # (Auto) 0.2 10 ^3/uL (0-0.8) Basophils # (Auto) 0 10 ^3/uL (0-0.2) Nucleated Red Blood Cells 0.0 % Sodium Level 142 mmol/L (136-145) Potassium Level 3.6 mmol/L (3.5-5.1) Chloride Level 107 mmol/L (98-107) Carbon Dioxide Level 25 mmol/L (20-31) Anion Gap 10 (5-15) Blood Urea Nitrogen 16 mg/dL (9-23) Creatinine 0.87 mg/dL (0.700-1.30) Glomerular Filtration Rate Calc 88 mL/min (>90) BUN/Creatinine Ratio 18.4 (10.0-20.0) Serum Glucose 98 mg/dL (74-106) Calcium Level 9.3 mg/dL (8.7-10.4) Random Vancomycin Level 3.9 ug/mL (5-10) Urine Color Light-orange (Yellow) Urine Clarity Turbid (Clear) Urine pH 5.5 (5.0-9.0) Urine Specific Rice 1.018 (1.001-1.035) Urine Protein 1+ (Negative) Urine Ketones Negative (Negative) Urine Blood 2+ /uL (Negative) Urine Nitrite 2+ (Negative) Urine Bilirubin Negative (Negative) Urine Urobilinogen Normal mg/dL (Negative) Urine Leukocyte Esterase 3+ /uL (Negative) Urine RBC 4 /hpf (0 - 3) Urine Microscopic WBC 84 /HPF (0-3) Urine Squamous Epithelial Cells Few /hpf (<5) Urine Bacteria Few /hpf (None Seen) Urine Mucus Few (None Seen) Urine Glucose Normal mg/dL (Normal) Urine Opiates Screen Neg (NEGATIVE) Urine Fentanyl Screen Neg (NEGATIVE) Urine Barbiturates Screen Neg (NEGATIVE) Urine Phencyclidine Screen Neg (NEGATIVE) Urine Amphetamines Screen Neg (NEGATIVE) Urine Benzodiazepines Screen Neg (NEGATIVE) Urine Cocaine Screen Neg (NEGATIVE) Urine Cannabinoids Screen Neg (NEGATIVE) Influenza Type A Antigen Negative (Negative) Influenza Type B Antigen Negative (Negative) SARS-CoV-2 Antigen (Rapid) Negative (NEGATIVE) Test 12/26/24 07:12 12/26/24 05:10 12/26/24 04:11 Troponin I High Sensitivity 15 ng/L (</=54) Thyroid Stimulating Hormone (TSH) 0.07 uIU/mL (0.55-4.78) Differential Total Cells Counted 100.0 (100) Neutrophils % (Manual) 85 (37.0-80.0) Band Neutrophils % (Manual) 3 Lymphocytes % (Manual) 5 (10.0-50.0) Monocytes % (Manual) 6 (0-12) Eosinophils % (Manual) 0 (0-7) Basophils % (Manual) 0 (0.0-2.0) Metamyelocytes % (manual) 0 Myelocytes % (Manual) 0 Promyelocytes % (Manual) 0 Blast Cells % (Manual) 0 Reactive Lymphocytes 1 Platelet Estimate Adequate Hemoglobin A1c 5.6 % A1C (<5.7) Lactic Acid Level 1.0 mmol/L (0.4-2.0) Magnesium Level 1.9 mg/dL (1.6-2.6) Total Bilirubin 0.6 mg/dL (0.2-1.0) Aspartate Amino Transferase (AST) 11 U/L (13-40) Alanine Aminotransferase (ALT) 12 U/L (7-40) Alkaline Phosphatase 129 U/L (46-116) Total Protein 7.0 g/dL (5.7-8.2) Albumin 4.3 g/dL (3.2-4.8) Free Thyroxine (T4) Calculated 1.35 ng/dL (0.89-1.76) Free Triiodothyronine (T3) pg/mL 2.04 pg/mL (2.3-4.2) Total Triiodothyronine (TT3) 0.70 ng/mL (0.60-1.81) Plasma/Serum Blood Alcohol < 3.0 mg/dL (<10) Other Laboratory Tests 12/28/24 06:19 Brief Hx & Hospital Course: History of Presenting illness 79-year-old male with past medical history( as provided by the patient) of chronic pain presented with complaints of fatigue that started last night after he did some weightlifting work. Denied any complaints of chest pain, shortness of breath, burning micturition, cough, nausea, vomiting, abdominal pain, dizziness, headache. As per ER physician note, presented to the emergency department via EMS with confusion. Patient's states since yesterday morning patient has had difficulty with word finding, abnormal behaviors such as trying to flush a diaper down the toilet, not dressing like his normal self, putting shoes on the wrong feet. reports that for the past 2 years, worsens over the past 6 months patient has had personality change concerning for early signs of Alzheimer's. She states that patient is currently taking metformin and topiramate at home for weight loss. Otherwise no significant past medical history. The patient's son recently had viral illness, patient has had similar symptoms. The patient I have called 911 just prior to arrival after patient was looking for an object which was right in front of the him and appeared acutely more confused with a loss for words. Patient has not had any slurred speech, no focal weakness. Per EMS on their arrival they witnessed patient repeating himself multiple times, looking for his wallet, being told he did not needed and continued to look for it. They noticed patient's oxygen saturation dropped to 88% intermittently on room air. Otherwise patient's other vital signs were stable, normal blood sugar, negative stroke scale. Past medical history: Chronic pain Past surgical history:No recent surgery Social history:Denied smoking, drinks occasional alcohol, denied marijuana or any other drug intake Allergic history:Statins Medication history: Levothyroxine, Hydrochlorothiazide,Enalapril,Tamsulosin, Pentoxifylline,Vilazodone, Lamotrigine, Metformin,Topiramate, Amlodipine,Tizanidine Brief Hospital course Patient is a 79 year-old male with a past medical history of chronic pain DM and hypothyroidism, recent prostatectomy. In the hospital, patient was managed for UTI on UA with antibiotics. Patient is awake, alerted and oriented to person, place and time. He felt better no evidence of confusion. His urine is cleared of any infection. Will send patient home today. He should continue home medication as is. Review of Systems Constitutional: Denies fever no chills no feeling of malaise HEENT: Denies headache, ear pain, ear discharges, conjunctivitis, nasal discharge throat pain Cardiovascular: Denies chest pain, palpitation, orthopnea, PND, or pedal edema Respiratory: Denies shortness of breath, cough cough, sputum production, hemoptysis, GI: Denies abdominal pain, nausea, vomiting, diarrhea, hematemesis, hematochezia, : Denies frequency, urgency, hematuria, Endocrine: Denies unintentional weight gain or weight loss, feeling of hot flashes, Christiano: Denies easy bruising, bleeding disorders, epistaxis Musculoskeletal: Denies joint pains, muscle aches Psych: No evidence of depression, claudine, suicidal ideation Examination General Appearance: Alert, Oriented X3, Cooperative, No acute distress HEENT: Atraumatic, PERRLA, EOMI, Mucous membrane moist/pink Respiratory: Clear to auscultation, Normal air movement Cardiovascular: Regular rate, Normal S1, Normal S2, No murmurs, no chest wall tenderness Abdominal: NO distention, no tenderness, bowel sounds present, no scars noted Extremities: No clubbing, No cyanosis, No edema, Normal pulses, No tenderness/swelling Skin: No rashes, No breakdown, No significant lesion Neuro: Normal gait, Normal speech, Strength at 5/5 X4 ext, Normal tone, Sensation intact, Cranial nerves 3-12 NL, Reflexes 2+ Psych/Mental Status: Mental status NL, Mood NL Diagnoses Metabolic encephalopathy likely due to possible sepsis Sepsis due to UTI Delirium UTI Diabetes mellitus Hypertension Personality change, ? Dementia hypothyroidism Dehydration Discharge plan Discharge home Follow up at the discharge clinic in 7 days Continue home medications for chronic conditions Patient advised to follow up with his PCP Advised to report to the ED if condition does not improve. Discharge plan discussed + Dr Win Condition at Discharge: Good Final Diagnosis/Problems List Metabolic encephalopathy likely due to possible sepsis Sepsis due to UTI Delirium UTI Personality change, ?Dementia hypothyroidism Dehydration Discharge Disposition: Home Discharge Instruct/Medications Diet: Regular Activity: No Restrictions, As Tolerated Follow Up/Referral: 7 days Medications: No medications Discharge Statement: "Patient was advised to return to the ER or call 911 if any headaches, dizziness, shortness of breath, chest pain, abdominal pain, bleeding, fevers, or worsening of medical condition. Patient was counseled about treatment plan, medications, possible side effects, patientverbalized understanding. All questions were answered to the best of my ability. This discharge took greater then 30 minutes in planning, reviewing documentation, counseling the patient, and discussing with other team members." ASSESSMENT ASSESSMENT Assessment metabolic encephalopathy likely due to possible sepsis Sepsis due to UTI Delirium UTI Personality change, ?Dementia hypothyroidism Dehydration Date of Service: Dec 28, 2024 Billing Provider: ERNST WIN MD Common Visit Codes: 76164-SAN/OBS DISCH DAY >30min ALFREDITO RAO RESIDENT Dec 28, 2024 11:42 ERNST WIN MD Jan 03, 2025 22:07
== END 2024-12-28 17:40 | disposition home or self-care (01) | DRG 871 ==
LOC: ER 03:28 → EDBD 03:28 → OVERFLOW 06:45 → TELE-CENTR 16:58
PROVIDERS: ADMIT Student in an Organized Health Care Education/Training Program; ATTEND Student in an Organized Health Care Education/Training Program
DX: A41.9 Sepsis, unspecified organism (principal); G93.41 Metabolic encephalopathy; N39.0 Urinary tract infection, site not specified; Z20.822 Contact with and (suspected) exposure to COVID-19; F03.90 Unspecified dementia, unspecified severity, without behavioral disturbance, psychotic disturbance, mood disturbance, and anxiety; E03.9 Hypothyroidism, unspecified; E86.0 Dehydration; G89.29 Other chronic pain; Z79.899 Other long term (current) drug therapy; Z88.8 Allergy status to other drugs, medicaments and biological substances
CPT/HCPCS: 36415; 70450; 71045; 80048; 80053; 80202; 80307; 80320; 81001; 83036; 83605; 83735; 84439; 84443; 84480; 84481; 84484; 85007; 85025; 85027; 87040; 87081; 87086; 87426; 87804; 93005; G0378; J2470; J2543